=== PATIENT | female | born 1950 | race African-American/Black ===

== ENCOUNTER 2016-07-28 08:51 | Emergency (ER) | payer OTHER ==
[~2016-07-28] VITALS: Ht 160 cm; Wt 76.2 kg
[~2016-07-28 08:51] MED LIST: ASPIRIN CHILDRE81 MG PO; COREG 12.5MG12.5 MG PO; GLIMEPIRIDE4 MG PO; LASIX20 MG PO; METFORMIN ER500 MG PO; METFORMIN1000 MG PO; PRINIVIL 5MG5 MG PO
[2016-07-28 09:03] VITALS: BP 132/84
[2016-07-28] MEDS ORDERED: TRADJENTA5 M1 PO (09:14)
[2016-07-28] MEDS ORDERED: AMLODIPINE BESYL5 M1 PO (09:14)
[2016-07-28] MEDS ORDERED: FEOSOL325 MG PO (09:15)
[2016-07-28] MEDS ORDERED: PRAVACHOL80 M1 PO (09:15)
[2016-07-28] MEDS ORDERED: SPECTRAVITE SE1 EACH PO (09:16)
--- NOTE | 2016-07-28 09:20 | ED THROAT/DENTAL COMPLAINT ---
History of Present Illness General Chief Complaint: Sore Throat, Dental Pain Stated Complaint: MOUTH PAIN Source: patient Exam Limitations: no limitations Vital Signs & Intake/Output Vital Signs & Intake/Output Vital Signs Date Time Temp Pulse Resp B/P Pulse O2 O2 Flow FiO2 Ox Delivery Rate 07/28 0932 97 07/28 0903 97.6 89 18 132/84 98 Room Air Room Air Allergies Coded Allergies: NO KNOWN ALLERGIES (02/28/14) Reconcile Medications Amlodipine Besylate 5 MG TABLET 1 TAB PO DAILY HEART (Reported) Aspirin (Children's Aspirin) 81 MG TAB.CHEW 81 MG PO DAILY HEART Carvedilol (Coreg) 12.5 MG TABLET 12.5 MG PO BID HEART Ferrous Sulfate (Feosol) 325 MG (65 MG IRON) TABLET 1 TAB PO DAILY SUPPLEMENT (Reported) Furosemide (Lasix) 20 MG TABLET 20 MG PO DAILY HEART FAILURE Glimepiride 4 MG TABLET 4 MG PO DAILY DIABETES (Reported) Linagliptin (Tradjenta) 5 MG TABLET 1 TAB PO DAILY DIABETES (Reported) Lisinopril (Prinivil) 5 MG TABLET 5 MG PO DAILY HYPERTENSION METFORMIN HCL (Metformin) 1,000 MG TABLET 1,000 MG PO BID DIABETES (Reported) Multivitamin W/Iron, Minerals (Spectravite Senior) 1 EACH TABLET 1 TAB PO DAILY SUPPLEMENT (Reported) Pravastatin Sodium (Pravachol) 80 MG TABLET 1 TAB PO DAILY CHOLESTEROL ( Reported) Triage Note: TRIAGE: 66 Y/O FEMALE PRESENTS C/O 04/16 DENTAL PAIN X 3 WEEKS "MY INSURANCE DOESN'T COVER A DENTIST." Triage Nurses Notes Reviewed? yes Onset: Gradual Duration: constant Timing: recent history Severity: severe Severity Numbers: 7 No Modifying Factors: none HPI: Patient is a 66-year-old female who presents to emergency room with right lower jaw and teeth and gum pain in which patient states that she is concerned of infection to the right lower jaw which she complains of gum swelling and pain. Patient can still tolerate by mouth denies any throat swelling or tongue swelling lip swelling or difficulty swallowing. Denies any dental fracture mechanism denies any trismus Patient does not have dental insurance ([employer]IPO BEATT[employer]) Past History Travel History Traveled to [place] past 21 day No Medical History Any Pertinent Medical History? see below for history Cardiovascular: CAD History of MRSA: No History of VRE: No History of CDIFF: No Surgical History Surgical History: non-contributory Psychosocial History Who do you live with Other (see notes) What is your primary language Latvian Tobacco Use: Never used ETOH Use: denies use Illicit Drug Use: denies illicit drug use Family History Family History, If Any: Relation not specified for: *No pertinent family history Hx Contributory? No (PIPO BEATTY) Review of Systems Review of Systems Constitutional: Reports: no symptoms. EENTM: Reports: mouth pain, tooth pain. Respiratory: Reports: no symptoms. Cardiovascular: Reports: no symptoms. GI: Reports: no symptoms. Genitourinary: Reports: no symptoms. Musculoskeletal: Reports: no symptoms. Skin: Reports: no symptoms. Neurological/Psychological: Reports: no symptoms. Hematologic/Endocrine: Reports: no symptoms. Immunologic/Allergic: Reports: no symptoms. All Other Systems: Reviewed and Negative (PIPO BEATTY) Physical Exam Physical Exam General Appearance: no apparent distress, alert, comfortable Head: atraumatic Eyes: Bilateral: normal appearance. Ears: Bilateral: canal normal, Tympanic normal. Nose: normal inspection Mouth/Throat: pharynx normal, dental tenderness Neck: normal inspection, supple, full range of motion Cardiovascular/Respiratory: normal breath sounds Neurologic/Psych: no motor/sensory deficits, awake, oriented x 3, normal gait Skin: intact, normal color, warm/dry Diagram Dental: 1) Dental point tenderness noted, no surrounding gum swelling or abscess or discharge Surrounding point tenderness noted to the gum Core Measures ACS in differential dx? No Severe Sepsis Present: No Septic Shock Present: No (PIPO BEATTY) Progress Differential Diagnosis: aspirated tooth, carious tooth, epiglottitis, Ludwigs angina, meningitis, odontogenic abscess, carlos-tonsillar abscess, pharyngeal for. body, stomatitis/gingivitis, strep pharyngitis, tooth fracture Plan of Care: Signs of peritonsillar abscess no signs of GUM abscess no signs of Sohail angina. No trismus. No pharyngeal swelling erythema or exudates Patient was given referral for dental follow-up Patient was offered prescriptions of pain medication and declined Augmentin was prescribed Patient was strongly advised to return to emergency room if concerning symptoms or new symptom exists and she will comply. (PIPO BEATTY) Departure Departure Disposition: HOME OR SELF CARE Condition: Stable Clinical Impression Primary Impression: Pain, dental Referrals: MAUREEN PACK MD (PCP/Family) Additional Instructions: As discussed begin the prescription of Augmentin as directed for the full course. This prescription is waiting your pharmacy. Continue with over-the- counter Tylenol for pain. Please call list of dentists provided to the emergency room for follow-up and for further evaluation treatment. If symptoms worsen or you develop new concerning symptom return to emergency room immediately Departure Forms: Customer Survey General Discharge Information (DUSTIN BARRIOS,PIPO) PA/CONSULTING APPLICATION ENGINEER Co-Sign Statement Statement: ED Attending supervision documentation- [X] I saw and evaluated the patient. I have also reviewed all the pertinent lab results and diagnostic results. I agree with the findings and the plan of care as documented in the PA's/CONSULTING APPLICATION ENGINEER's documentation. [X] I have reviewed the ED Record and agree with the PA's/CONSULTING APPLICATION ENGINEER's documentation. [] Additions or exceptions (if any) to the PAs/CONSULTING APPLICATION ENGINEER's note and plan are summarized below: [] (VONNIE CHILDS,LELIA Aponte)
[2016-08-01] MEDS ORDERED: AUGMENTIN 875-1 EACH PO (09:51)
== END 2016-07-28 09:30 ==
LOC: ERH 08:51
DX: K08.89 Other specified disorders of teeth and supporting structures (principal)